=== PATIENT | female | born 1950 | race Asian ===

== ENCOUNTER 2016-12-01 00:03 | Emergency (ER) | payer OTHER ==
[~2016-12-01] VITALS: Ht 157.5 cm; Wt 39.1 kg
[~2016-12-01 00:03] MED LIST: ALPR0.255 PO; FELO5ER PO; FINA5TAB41 PO
[2016-12-01 00:44] LABS: BASOPHILS % (AUTO) 0.9 % (0.0-2.0); EOSINOPHILS % (AUTO) 1.6 % (1.0-6.0); HEMATOCRIT 40.7 % (36-46); HEMOGLOBIN 13.8 g/dL (12.0-16.0); LYMPHOCYTES % (AUTO) 48.3 % (22.0-44.0); MEAN CORPUSCULAR HEMOGLOBIN 30.9 pg (26.0-34.0); MEAN CORPUSCULAR HGB CONC 33.9 G/dL (31.0-37.0); MEAN CORPUSCULAR VOLUME 91 fL (80-100); MONOCYTES # (AUTO) 0.3 K/uL (0.1-1.0); NEUTROPHILS # (AUTO) 1.7 K/uL (1.8-7.7); NEUTROPHILS % (AUTO) 42.2 % (40.0-70.0); PLATELET COUNT (AUTO) 285 K/uL (150-450); RED BLOOD CELL COUNT(AUTO) 4.47 MIL/uL (4.00-5.20); RED CELL DISTRIBUTION WIDTH 12.3 % (11.5-14.5); WHITE BLOOD COUNT (AUTO) 4.2 K/uL (4.5-11.0)
[2016-12-01 00:49] LABS: ANION GAP 9 mmol/L (8-16); CARBON DIOXIDE 30 mmol/L (22-29); CHLORIDE 100 mmol/L (98-107); CREATININE 0.87 mg/dL (0.60-1.30); GLOMERULAR FILTR. RATE CALC > 60 mL/min (>60); POTASSIUM 3.3 mmol/L (3.5-5.1); SODIUM SERUM 139 mmol/L (136-145); UREA NITROGEN, BLOOD 10 mg/dL (7-18)
[2016-12-01 00:55] LABS: ALANINE AMINOTRANSFERASE 20 U/L (12-78); ALBUMIN 4.3 g/dL (3.4-5.0); ASPARTATE AMINOTRANSFERASE 13 U/L (15-37); BILIRUBIN,TOTAL 0.5 mg/dL (0.1-1.0); TOTAL PROTEIN, SERUM 7.6 g/dL (6.4-8.2)
[2016-12-01 01:21] LABS: APPEARANCE,URINE CLEAR (CLEAR); GLUCOSE, URINE (UA) NEGATIVE (NEGATIVE); KETONES,URINE TRACE mg/dL (NEGATIVE); LEUKOCYTE ESTERASE ,URINE SMALL (NEGATIVE); OCCULT BLOOD,URINE NEGATIVE (NEGATIVE); PROTEIN,URINE NEGATIVE (NEGATIVE)
[2016-12-01 01:22] LABS: ADD UA MICROSCOPIC YES
[2016-12-01] MEDS ORDERED: SODIUM CHLORIDE 0.9% 1,000 ML IV ONE (01:30)
[2016-12-01 01:31] LABS: SQUAMOUS EPITHELIAL CELL,UR Few /LPF (None Seen)
[2016-12-01 01:34] LABS: RBC,URINE None Seen /HPF (0-2)
[2016-12-01] MEDS ORDERED: BARIUM SULFATE 0.1% SUSPENSION 450 ML BOTTLE PO ONE (03:00)
[2016-12-01] MEDS ORDERED: IOVERSOL 350 MG/ML 100 ML VIAL ONE (03:06)
[2016-12-01] MEDS ORDERED: SODIUM CHLORIDE 0.9% 100 ML ONE (03:06)
[2016-12-01] MEDS ORDERED: ONDANSETRON HCL 4 MG/2 ML VIAL IVP ONE (03:45)
[2016-12-01] MEDS ORDERED: HYDROmorphone 2 MG/ML SYRINGE IVP ONE (03:45)
[2016-12-01] MEDS ORDERED: POTASSIUM CHLORIDE 10% 40 MEQ/30 ML LIQUID UDCUP PO ONE (05:45)
[2016-12-01 06:20] VITALS: BP 144/81
== END 2016-12-01 06:38 | disposition home or self-care (01) ==
LOC: EMS 00:05
DX: N13.30 Unspecified hydronephrosis (principal); K59.00 Constipation, unspecified; D25.9 Leiomyoma of uterus, unspecified; I10 Essential (primary) hypertension; F41.9 Anxiety disorder, unspecified
CPT/HCPCS: 36415; 71010; 74177; 80053; 81001; 83690; 84484; 85025; 93005; 99285; J7030; J7050; Q9967; Z7610

== ENCOUNTER 2024-01-15 11:48 | Emergency (ER) | payer OTHER ==
[~2024-01-15] VITALS: Ht 154.9 cm; Wt 42.7 kg
[~2024-01-15 11:48] MED LIST changes: +ALPR-705 PO; -ALPR0.255 PO; -FELO5ER PO; +FELO5TAB45 PO; +FINA-27 PO; -FINA5TAB41 PO
[2024-01-15 11:54] VITALS: TEMP 98.3
[2024-01-15 13:11] LABS: BASOPHILS % (AUTO) 0.8 % (0.0-2.0); EOSINOPHILS % (AUTO) 0.6 % (1.0-6.0); HEMATOCRIT 46.3 % (36-46); HEMOGLOBIN 15.2 g/dL (12.0-16.0); LYMPHOCYTES # (AUTO) 1.2 K/uL (1.0-4.8); LYMPHOCYTES % (AUTO) 23.9 % (22.0-44.0); MEAN CORPUSCULAR HEMOGLOBIN 29.9 pg (26.0-34.0); MEAN CORPUSCULAR VOLUME 91 fL (80-100); MONOCYTES # (AUTO) 0.4 K/uL (0.1-1.0); MONOCYTES % (AUTO) 7.9 % (2.0-9.0); NEUTROPHILS # (AUTO) 3.2 K/uL (1.8-7.7); NEUTROPHILS % (AUTO) 66.8 % (40.0-70.0); PLATELET COUNT (AUTO) 297 K/uL (150-450); RED BLOOD CELL COUNT(AUTO) 5.11 MIL/uL (4.00-5.20); RED CELL DISTRIBUTION WIDTH 13.7 % (11.5-14.5); WHITE BLOOD COUNT (AUTO) 4.8 K/uL (4.5-11.0)
[2024-01-15 13:28] LABS: ANION GAP 12 mmol/L (8-16); CALCIUM, TOTAL 9.5 mg/dL (8.8-10.5); CARBON DIOXIDE 27 mmol/L (22-29); CHLORIDE 101 mmol/L (98-107); CREATININE 0.77 mg/dL (0.60-1.30); GLOMERULAR FILTR. RATE CALC > 60 mL/min (>60); GLUCOSE,RANDOM 100 mg/dL (70-110); POTASSIUM 3.4 mmol/L (3.5-5.1); SODIUM SERUM 140 mmol/L (136-145); UREA NITROGEN, BLOOD 14 mg/dL (7-18)
[2024-01-15 13:33] LABS: ALANINE AMINOTRANSFERASE 29 U/L (12-78); ALBUMIN 4.1 g/dL (3.4-5.0); ALKALINE PHOSPHATASE 96 U/L (46-116); ASPARTATE AMINOTRANSFERASE 23 U/L (15-37); BILIRUBIN,TOTAL 0.8 mg/dL (0.1-1.0)
[2024-01-15 13:38] LABS: TROPONIN I-HIGH SENSITIVITY 8 ng/L (<51)
[2024-01-15 13:41] LABS: B-TYPE NATRIURETIC PEPTIDE 51 pg/mL (0-100)
[2024-01-15] MEDS ORDERED: DIPH50CA35 PO (13:58)
[2024-01-15] MEDS ORDERED: FAMO20 PO (13:58)
[2024-01-15] MEDS ORDERED: OMEP20CA12 PO (13:58)
[2024-01-15] MEDS ORDERED: AMLO5TAB66 PO (13:58)
[2024-01-15] MEDS ORDERED: EXEM25TA PO (13:58)
[2024-01-15] MEDS ORDERED: BISA-183 PO (13:58)
[2024-01-15] MEDS ORDERED: ATOR20TA65 PO (13:58)
[2024-01-15 14:01] VITALS: BP 157/97; PULSE 75; RESP 14
[2024-01-15] MEDS: POTASSIUM CHLORIDE 20 MEQ ER TABLET PO ONE (14:01)
== END 2024-01-15 14:34 | disposition home or self-care (01) ==
LOC: EMS 12:46
DX: R13.10 Dysphagia, unspecified (principal); R06.02 Shortness of breath; R09.81 Nasal congestion; F41.9 Anxiety disorder, unspecified; I10 Essential (primary) hypertension; Z90.49 Acquired absence of other specified parts of digestive tract; Z90.710 Acquired absence of both cervix and uterus; Z98.890 Other specified postprocedural states
CPT/HCPCS: 71045; 80048; 80076; 83880; 84484; 85025; 93005; 99285; 36415-L1; 36415-TC

== ENCOUNTER 2024-01-30 08:51 | Emergency (ER) | payer OTHER ==
[~2024-01-30] VITALS: Ht 154.9 cm; Wt 40.5 kg
[~2024-01-30 08:51] MED LIST changes: -ALPR-705 PO; +AMLO5TAB66 PO; +ATOR20TA65 PO; +BISA-183 PO; +DIPH50CA35 PO; +EXEM25TA PO; +FAMO20 PO; -FELO5TAB45 PO; -FINA-27 PO; +OMEP20CA12 PO
[2024-01-30 09:02] VITALS: BP 150/72; PULSE 76; RESP 20; TEMP 98.7; O2SAT 100
[2024-01-30 09:38] LABS: APPEARANCE,URINE CLEAR (CLEAR); BILIRUBIN,URINE NEGATIVE (NEGATIVE); COLOR,URINE LIGHT YELLOW (YELLOW); GLUCOSE, URINE (UA) NEGATIVE (NEGATIVE); KETONES,URINE NEGATIVE (NEGATIVE); LEUKOCYTE ESTERASE ,URINE MODERATE (NEGATIVE); NITRATE,URINE NEGATIVE (NEGATIVE); OCCULT BLOOD,URINE NEGATIVE (NEGATIVE); PROTEIN,URINE NEGATIVE (NEGATIVE); SPECIFIC GRAVITIY, URINE 1.009 (1.003-1.030); UROBILINOGEN,URINE <=1.0 mg/dL (<=1.0)
[2024-01-30 09:50] LABS: BACTERIA,URINE None Seen /HPF (None Seen); RBC,URINE None Seen /HPF (0-2); SQUAMOUS EPITHELIAL CELL,UR Few /LPF (None Seen); WBC,URINE 0-2 /HPF (0-5)
== END 2024-01-30 11:50 | disposition home or self-care (01) ==
LOC: EMS 08:51
DX: K59.00 Constipation, unspecified (principal); R35.0 Frequency of micturition; F41.9 Anxiety disorder, unspecified; I10 Essential (primary) hypertension; Z90.49 Acquired absence of other specified parts of digestive tract; Z90.710 Acquired absence of both cervix and uterus; Z98.890 Other specified postprocedural states
CPT/HCPCS: 81001; 99283